=== PATIENT | female | born 1960 | race Hispanic/Latino ===

== ENCOUNTER → 2019-02-17 | Outpatient (CLI) | payer BC ==
[~2019-02-17] MED LIST: CLARITIN10 M2 PO; QUINAPRIL HCL20 MG PO
== END ==
LOC: MAMMO 10:02
PROVIDERS: ATTEND Internal Medicine
DX: Z12.31 Encounter for screening mammogram for malignant neoplasm of breast (principal)
CPT/HCPCS: 77067

== ENCOUNTER → 2022-01-01 | Outpatient (CLI) | payer BC | LOC: MAMMO 08:29 | PROVIDERS: ATTEND Internal Medicine | DX: Z12.31 Encounter for screening mammogram for malignant neoplasm of breast (principal) | CPT/HCPCS: 77067 ==

== ENCOUNTER → 2024-10-26 | Outpatient (REF) | payer MEDICARE | LOC: MAMMO 12:50 | PROVIDERS: ATTEND Obstetrics & Gynecology | DX: N64.4 Mastodynia (principal) ==

== ENCOUNTER 2025-02-10 15:01 | Emergency (ER) | payer MEDICARE ==
[~2025-02-10] VITALS: Ht 152.4 cm; Wt 59.0 kg
[2025-02-10 15:12] VITALS: TEMP 97.7
[2025-02-10 16:15] VITALS: PULSE 78; RESP 16
[2025-02-10 16:32] LABS: BASOPHILS # (AUTO) 0.1 (0.0-0.1); BASOPHILS % 0.9 % (0.0-1.0); EOSINOPHILS # (AUTO) 0.1 (0.0-0.4); EOSINOPHILS % 2.3 % (0.0-6.0); HEMATOCRIT 41.3 % (34.2-44.1); HEMOGLOBIN 14.2 g/dL (12.0-16.0); LYMPHOCYTES # (AUTO) 2.1 (1.0-3.2); LYMPHOCYTES % 35.7 % (18.0-39.1); MEAN CORPUSCULAR HEMOGLOBIN 29.8 pg (28-32); MEAN CORPUSCULAR HGB CONC 34.4 g/dL (31-35); MEAN CORPUSCULAR VOLUME 86.8 fL (81-99); MONOCYTES # (AUTO) 0.5 (0.2-0.8); NEUTROPHILS % 52.1 % (38.7-80.0); PLATELET COUNT 148 x10e3/uL (140-360); RED BLOOD COUNT 4.76 x10e6/uL (3.6-5.1); RED CELL DISTRIBUTION WIDTH 11.9 % (11.7-14.4); WHITE BLOOD COUNT 5.75 x10e3/uL (4.8-10.8)
[2025-02-10] MEDS: ONDANSETRON HCL INJ 2MG/ML 2ML 2 MG/ML VIAL IV STA (16:41)
[2025-02-10 17:01] LABS: ALBUMIN 4.9 g/dL (3.5-5.0); ALBUMIN/GLOBULIN RATIO 1.6 (0.8-2.0); ANION GAP 17.9 mmol/L (8-16); BILIRUBIN,TOTAL 0.4 mg/dL (0.2-1.2); CREATININE, SERUM 0.82 mg/dL (0.57-1.11); POTASSIUM 3.9 mmol/L (3.5-5.1)
[2025-02-10] MEDS: MECLIZINE HCL 12.5 MG TAB PO ONE (17:02)
[2025-02-10] MEDS: LORAZEPAM INJ 2 MG/ML VIAL IV ONE (17:04)
[2025-02-10] MEDS ORDERED: MECLIZINE HCL12.5 MG PO (17:06)
[2025-02-10 17:54] VITALS: BP 139/78; PULSE 78; RESP 16; TEMP 98; O2SAT 98
== END 2025-02-10 17:35 | disposition home or self-care (01) ==
LOC: ER 15:36
DX: R42 Dizziness and giddiness (principal); R11.0 Nausea; I10 Essential (primary) hypertension; B19.20 Unspecified viral hepatitis C without hepatic coma
CPT/HCPCS: 36415; 70450; 71045; 80053; 84484; 85025; 93005; 99283; J2060; J2405; J8597